=== PATIENT | female | born 2000 | race Two or more races ===

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

== ENCOUNTER 2024-08-24 02:28 | Inpatient (IN) | payer MEDICAID ==
[~2024-08-24] VITALS: Ht 154.9 cm; Wt 87.5 kg
[2024-08-24 03:43] LABS: Fern Testing Positive
[2024-08-24] MEDS ORDERED: LIDOCAINE 2%HCL (LOCAL ANESTH.) INJ 20ML MDV IJ PRN (04:00)
[2024-08-24] MEDS ORDERED: BUTORPHANOL TARTRATE 2 MG/1 ML VIAL IV PRN ×2 (04:00)
[2024-08-24] MEDS ORDERED: TERBUTALINE SULFATE 1 MG/ML 1ML VIAL SC PRN (04:00)
[2024-08-24 04:25] LABS: Urine Bacteria None Seen /hpf (None Seen)
[2024-08-24 04:35] LABS: Basophils # (auto) 0 10 ^3/uL (0-0.2); Basophils % (auto) 0.2 % (0.0-2.0); Eosinophils # (auto) 0 10 ^3/uL (0-0.8); Eosinophils % (auto) 0.3 % (0.0-7.0); Hematocrit 39.2 % (36.0-46.0); Hemoglobin 12.8 g/dL (12.2-16.2); Lymphocytes # (auto) 1.9 10 ^3/uL (0.4-5.4); Lymphocytes % (auto) 24.5 % (10.0-50.0); Mean Corpuscular Hemoglobin 29.2 pg (28.0-32.0); Mean Corpuscular Hgb Conc. 32.6 g/dL (32.0-36.0); Mean Corpuscular Volume 89.5 fL (80.0-100.0); Monocytes # (auto) 0.4 10 ^3/uL (0-1.3); Monocytes % (auto) 5.6 % (0.0-12.0); Neutrophils # (auto) 5.5 10 ^3/uL (1.6-8.6); Neutrophils % (auto) 69.4 % (37.0-80.0); Platelet Count (auto) 163 10^3/uL (140-450); Red Blood Cells 4.38 10^6/uL (4.0-5.20); Red Cell Distribution Width 15.1 % (11.8-14.3); Urine Blood 2+ /uL (Negative); Urine Clarity Clear (Clear); Urine Color Light-Yellow (Yellow); Urine Protein, UAD TRACE (Negative); Urine Specific Gravity 1.014 (1.001-1.035); Urine Urobilinogen Normal (Negative); Urine WBC 3 /hpf (0 - 5); Urine pH 6.5 (5.0-9.0); White Blood Cell 7.9 10^3/uL (4.4-10.8)
[2024-08-24] MEDS: LACTATED RINGER'S 1,000 ML IV SCH (04:50)
[2024-08-24 04:52] LABS: Alanine Aminotransferase 17 U/L (7-40); Albumin 4.1 g/dL (3.2-4.8); Alkaline Phosphatase 145 U/L (46-116); Amphetamine Screen, Urine Neg (NEGATIVE); Anion Gap 8 (5-15); Aspartate Aminotransferase 20 U/L (13-40); BUN/Creatinine Ratio 10.8 (10.0-20.0); Barbiturate Scree,Urine Neg (NEGATIVE); Benzodiazephine Screen, Urine Neg (NEGATIVE); Blood Urea Nitrogen 7 mg/dL (9-23); Cannabinoid Screen, Urine Neg (NEGATIVE); Carbon Dioxide 24 mmol/L (20-31); Chloride 105 mmol/L (98-107); Cocaine Screen, Urine Neg (NEGATIVE); Glucose 87 mg/dL (74-106); Opiate Scree,Urine Neg (NEGATIVE); Phencyclidine Screen, Urine Neg (NEGATIVE); Potassium 3.7 mmol/L (3.5-5.1); Sodium 137 mmol/L (136-145)
[2024-08-24 04:53] LABS: Total Protein 7.2 g/dL (5.7-8.2)
[2024-08-24 04:58] LABS: INR 0.91 (0.9-1.15); Partial Thromboplastin Time 27.7 SEC (24.5-34.5); Prothrombin Time 9.7 sec (9.3-11.8)
[2024-08-24 05:06] LABS: Bilirubin, Total 0.3 mg/dL (0.2-1.0)
[2024-08-24] MEDS: ROPIVACAINE HCL 200 ML ONE (05:27)
[2024-08-24] MEDS: LACTATED RINGER'S 1,000 ML IV ONE (05:30)
[2024-08-24] MEDS: ePHEDrine SULFATE 50 MG/ML AMP IV ONE (05:30)
--- NOTE | 2024-08-24 05:47 | DVHHP2 ---
OB CC & HPI Date Date of Admission: Aug 24, 2024 Patient Identification: : 2 Para: 0 EDC: Aug 28, 2024 EGA: 39.3 Chief Complaints: Reason for admission: rupture of membranes History of Present Complaints 24y G2Po IUP 39+ wk. Presented w/ PROM, grossly ruptured membranes, clear fluid. GBS+. Mild to moderate contractions. 2cm dilated on admission. Good PNL care w/ Dr. Baltazar, uncomplicated other than maternal obesity BMI 36. Past Medical History Cardiac: No pertinent Hx Pulmonary: No pertinent Hx Central Nervous System: No pertinent Hx GI: No pertinent Hx Hemotology/Oncology: No pertinent Hx Hepatobiliary: No pertinent Hx Psychiatric: No pertinent Hx Musculoskeletal: No pertinent Hx Rheumotologic: No pertinent Hx Infectious Disease: No peritnent Hx ENT: No pertinent Hx Renal/: No pertinent Hx Endocrine: No pertinent Hx Dermatology: No pertinent Hx Past Surgical History: No pertinent Hx OB History OB History Care: Good Care Ultrasounds: Normal mid trimester US Obstetrical Complications: None Medical Complications: None Allergies: Coded Allergies: NO KNOWN ALLERGIES (Unverified , 11/27/15) Current Medications Current Medications Medications (Trade) Dose Ordered Sig/Becki Route PRN Reason Start Time Stop Time Status Last Admin Lactated Ringer's 1,000 ml @ 125 mls/hr Q8H IV 08/24/24 04:00 08/24/24 04:50 Penicillin G Potassium [id number] units/Dextrose 50 ml @ 100 mls/hr Q4H IV 08/24/24 08:00 Dom Pandya (Tucks) 1 pad PRN PRN TOP PERINEAL AREA DISCOMFORT 08/24/24 04:00 Sodium Lauryl Sulfate (Phisoderm) 240 ml PRN PRN TOP PERINEAL AREA DISCOMFORT 08/24/24 04:00 Benzocaine (Dermoplast) 1 applic PRN PRN TOP PERINEAL AREA DISCOMFORT 08/24/24 04:00 Butorphanol Tartrate (Stadol Injection) 1 mg Q4HPRN PRN IV MODERATE PAIN (4-6 PAIN SCALE) 08/24/24 04:00 Butorphanol Tartrate (Stadol Injection) 2 mg Q4HPRN PRN IV SEVERE PAIN (7-10 PAIN SCALE) 08/24/24 04:00 Lidocaine HCl (Xylocaine) 20 ml ONCE PRN IJ PERINEAL AREA DISCOMFORT 08/24/24 04:00 Oxytocin 1,000 ml @ 6 ml/hr Q24H IV 08/24/24 04:00 Terbutaline Sulfate (Brethine Inj) 0.25 mg ONCE PRN SC Uterine tachysystole 08/24/24 04:00 Family & Social History Family/Social History Rubella: immune RPR/VDRL: Negative GBS Status: Positive HBsAG: Negative Review of Systems Constitutional: No symptom reported Ears, Nose, & Throat: No symptom reported Eyes: No symptom reported Pulmonary/Respiratory: No symptom reported Cardiovascular: No symptom reported Gastrointestinal: No symptom reported Genitourinary: No symptom reported Musculoskeletal: No symptom reported Skin: No symptom reported Psychiatric: No symptom reported Endocrine: No symptom reported Hemotologic/Lymphatic: No symptom reported OB Admission Exam Physical Exam HEENT: TMs Normal, Fontanelles Normal, Nasal Mucosa Normal, Eyes non-injected, Oropharynx Normal, PERRLA, Moist Membranes, EOMI Heart: Rhythm Normal Lungs: Clear Abdomen: Non tender Extremities: Normal Reflexes: Normal Pelvic Exam: RN Exam 2/ 60%/ -2 VTX Cervical Dilatation: 2cm Effacement: Other (60) Station: -2 Membranes: Intact Amniotic Fluid: Clear Heart Rate: 120's Accelerations: Accelerations Present Decelerations: No Decelerations Short Term Variability: Present Crap Game Box Person Variability: Average (6-25) Contractions on Admission: 6-10 Minutes Apart Intensity: Mild OB Plan Plan Admitting Diagnosis: Term IUP SROM, Early Labor GBS+ Maternal Obesity BMI 36 Induction Methd: Pitocin protocol Other Plan: Admit for labor and delivery Pen G for GBS+ Rx Pitocin augmentation of labor Epidural discussed w/ patient informed consent obtained Care endorsed to oncoming OB team, Dr. Baltazar contact lens blocker and cutter today. CHERIE HUBBARD DO Aug 24, 2024 05:47
[2024-08-24] MEDS: PENICILLIN G POT 5MIL/D5 50ML 50 ML IV ONE (05:50)
[2024-08-24] MEDS: ROPIVACAINE HCL 200 ML EPI ONE (05:51)
[2024-08-24] MEDS: LACT. RINGERS/OXYTOCIN 20UNITS 1,000 ML IV SCH (06:52)
--- NOTE | 2024-08-24 07:30 | DVHPN2 ---
Chief Complaints Patient reports: No new complaints Nursing reports: No new complaints Objective Medications Current Medications Medications (Trade) Dose Ordered Sig/Becki Route PRN Reason Start Time Stop Time Status Last Admin Benzocaine (Dermoplast) 1 applic PRN PRN TOP PERINEAL AREA DISCOMFORT 08/24/24 04:00 Butorphanol Tartrate (Stadol Injection) 1 mg Q4HPRN PRN IV MODERATE PAIN (4-6 PAIN SCALE) 08/24/24 04:00 Butorphanol Tartrate (Stadol Injection) 2 mg Q4HPRN PRN IV SEVERE PAIN (7-10 PAIN SCALE) 08/24/24 04:00 Lactated Ringer's 1,000 ml @ 125 mls/hr Q8H IV 08/24/24 04:00 08/24/24 04:50 Lidocaine HCl (Xylocaine) 20 ml ONCE PRN IJ PERINEAL AREA DISCOMFORT 08/24/24 04:00 Oxytocin 1,000 ml @ 6 ml/hr Q24H IV 08/24/24 04:00 08/24/24 06:52 Penicillin G Potassium [id number] units/Dextrose 50 ml @ 100 mls/hr Q4H IV 08/24/24 08:00 Sodium Lauryl Sulfate (Phisoderm) 240 ml PRN PRN TOP PERINEAL AREA DISCOMFORT 08/24/24 04:00 Terbutaline Sulfate (Brethine Inj) 0.25 mg ONCE PRN SC Uterine tachysystole 08/24/24 04:00 Dom Pandya (Tucks) 1 pad PRN PRN TOP PERINEAL AREA DISCOMFORT 08/24/24 04:00 Others ve -3cm/80/-2 Studies Laboratory Tests 08/24/24 04:09 Test 08/24/24 04:09 Range/Units Serum Glucose 87 74-106 mg/dL Ass/Plan Assessment srom Plan cont with CLEO Pina DO Aug 24, 2024 07:30
[2024-08-24] MEDS: PENICILLIN G POTASSIUM 2,500,000 UNITS in D5W 5% 50 ML IV SCH (09:56)
--- NOTE | 2024-08-24 10:46 | DVHPN2 ---
Chief Complaints Patient reports: No new complaints Nursing reports: No new complaints Objective Medications Current Medications Medications (Trade) Dose Ordered Sig/Becki Route PRN Reason Start Time Stop Time Status Last Admin Benzocaine (Dermoplast) 1 applic PRN PRN TOP PERINEAL AREA DISCOMFORT 08/24/24 04:00 Butorphanol Tartrate (Stadol Injection) 1 mg Q4HPRN PRN IV MODERATE PAIN (4-6 PAIN SCALE) 08/24/24 04:00 Butorphanol Tartrate (Stadol Injection) 2 mg Q4HPRN PRN IV SEVERE PAIN (7-10 PAIN SCALE) 08/24/24 04:00 Lactated Ringer's 1,000 ml @ 125 mls/hr Q8H IV 08/24/24 04:00 08/24/24 04:50 Lidocaine HCl (Xylocaine) 20 ml ONCE PRN IJ PERINEAL AREA DISCOMFORT 08/24/24 04:00 Oxytocin 1,000 ml @ 6 ml/hr Q24H IV 08/24/24 04:00 08/24/24 06:52 Penicillin G Potassium [id number] units/Dextrose 50 ml @ 100 mls/hr Q4H IV 08/24/24 08:00 08/24/24 09:56 Sodium Lauryl Sulfate (Phisoderm) 240 ml PRN PRN TOP PERINEAL AREA DISCOMFORT 08/24/24 04:00 Terbutaline Sulfate (Brethine Inj) 0.25 mg ONCE PRN SC Uterine tachysystole 08/24/24 04:00 Dom Pandya (Tucks) 1 pad PRN PRN TOP PERINEAL AREA DISCOMFORT 08/24/24 04:00 Others ve-10cm Studies Laboratory Tests 08/24/24 04:09 Test 08/24/24 04:09 Range/Units Serum Glucose 87 74-106 mg/dL Ass/Plan Assessment active labor Plan laboring down CLEO BUSTILLO DO Aug 24, 2024 10:46
[2024-08-24] MEDS: METHYLERGONOVINE MALEATE 0.2 MG/ML AMP IM ONE ×2 (15:18→16:45)
[2024-08-24] MEDS: CARBOPROST TROMETHAMINE 250 MCG/1ML VIAL IM ONE ×3 (15:19→16:49)
[2024-08-24] MEDS: DIPHENOXYLATE W/ATROPINE 2.5 MG TAB ONE (15:21)
[2024-08-24] MEDS: ONDANSETRON HCL 4 MG/2 ML VIAL ONE (15:28)
--- NOTE | 2024-08-24 15:51 | LDN2 ---
Labor and Delivery Note Date 08/24/24 Age 24 2 Para 1 AB 1 EDC 12- EGA 39wks Diagnosis rom Vaginal Delivery: VTX Vacuum Assisted: Yes Placenta: Spontaneous Sex: Female Apgars 8-9 Nuchal Cord Transected: No Amniotic Fluid: Clear Anesthesia epidural Episiotomy: Yes Extension: Yes (midline epis with 2nd deg perineal lac) Repaired with 2-0 chromic EBL 1000ml Labs Blood Bank 08/24/24 04:09: Blood Type O POSITIVE Complications uterine atony Conditions stable Comments/Significant Med Genia spec exam no cxal lac,uterine atony noted which responded to medical tx vaccum applied due to poor pushing effort and decl along with midline epis to which pt agreed CLEO BUSTILLO DO Aug 24, 2024 15:51
[2024-08-24] MEDS ORDERED: miSOPROStol 100 mcg TAB SL PRN (16:15)
[2024-08-24] MEDS ORDERED: miSOPROStol 100 mcg TAB PR PRN (16:15)
[2024-08-24] MEDS ORDERED: DIPHENOXYLATE W/ATROPINE 2.5 MG TAB PO PRN (16:30)
[2024-08-24] MEDS: LACT. RINGERS/OXYTOCIN 20UNITS 500 ML IV ONE ×2 (16:43→16:44)
[2024-08-24] MEDS: ONDANSETRON HCL 4 MG/2 ML VIAL IM ONE (16:46)
[2024-08-24 17:02] LABS: Basophils # (auto) 0 10 ^3/uL (0-0.2); Basophils % (auto) 0.2 % (0.0-2.0); Eosinophils # (auto) 0 10 ^3/uL (0-0.8); Eosinophils % (auto) 0.1 % (0.0-7.0); Hematocrit 37.3 % (36.0-46.0); Hemoglobin 12.3 g/dL (12.2-16.2); Lymphocytes # (auto) 1.1 10 ^3/uL (0.4-5.4); Mean Corpuscular Hemoglobin 29.4 pg (28.0-32.0); Mean Corpuscular Hgb Conc. 32.8 g/dL (32.0-36.0); Mean Corpuscular Volume 89.4 fL (80.0-100.0); Monocytes # (auto) 0.8 10 ^3/uL (0-1.3); Monocytes % (auto) 4.5 % (0.0-12.0); Neutrophils # (auto) 16.8 10 ^3/uL (1.6-8.6); Neutrophils % (auto) 89.2 % (37.0-80.0); Nucleated Red Blood Cells % 0.1 %; Red Blood Cells 4.18 10^6/uL (4.0-5.20); Red Cell Distribution Width 14.9 % (11.8-14.3); White Blood Cell 18.8 10^3/uL (4.4-10.8)
[2024-08-24 17:17] LABS: Platelet Count (auto) 158 10^3/uL (140-450)
[2024-08-24] MEDS: ACETAMINOPHEN 325 MG TAB PO PRN (18:22)
[2024-08-24] MEDS: ceFAZolin 1GM/50ML 50 ML IV ONE (18:22)
[2024-08-24 19:00] VITALS: BP 109/56; PULSE 89; RESP 16; TEMP 98.7; O2SAT 97
[2024-08-24] MEDS: IBUPROFEN 600 MG TAB PO PRN (21:15)
[2024-08-24] MEDS: DOCUSATE SOD 100 MG CAP PO SCH (22:00)
[2024-08-24 23:00] VITALS: BP 104/60; PULSE 88; RESP 16; TEMP 98.2; O2SAT 97
[2024-08-25] MEDS: ceFAZolin 1GM/50ML 50 ML IV SCH (02:23)
[2024-08-25 03:05] VITALS: BP 102/54; PULSE 83; RESP 16; TEMP 98.3; O2SAT 97
[2024-08-25] MEDS: DERMOPLAST 60ML BOTTLE TOP PRN (04:56)
[2024-08-25] MEDS: PHISODERM TOP SOLN 240ML BTL TOP PRN (04:56)
[2024-08-25] MEDS: WITCH HAZEL-GLYCERIN PAD TOP PRN (04:57)
[2024-08-25 07:30] VITALS: BP 125/59; PULSE 94; RESP 16; TEMP 98; O2SAT 97
--- NOTE | 2024-08-25 07:36 | DVHPN2 ---
Chief Complaints Patient reports: No new complaints Nursing reports: No new complaints Objective Vitals Vital Signs Date Time Temp Pulse Resp B/P (MAP) Pulse Ox O2 Delivery O2 Flow Rate FiO2 08/25/24 07:30 98.0 94 16 125/59 (81) 97 98.0 08/25/24 07:22 Room Air Medications Current Medications Medications (Trade) Dose Ordered Sig/Becki Route PRN Reason Start Time Stop Time Status Last Admin Acetaminophen (Tylenol Tablet) 650 mg Q4HP PRN PO MILD PAIN (1-3 PAIN SCALE) 08/24/24 16:30 08/25/24 01:04 Acetaminophen (Tylenol Tablet) 1,000 mg Q6HP PRN PO MILD PAIN (1-3 PAIN SCALE) 08/24/24 14:30 Cefazolin Sodium 50 ml @ 100 mls/hr Q8HR IV 08/25/24 02:00 08/25/24 02:23 Diphenoxylate HCl/ Atropine (Lomotil Tablet) 5 mg Q6HP PRN PO FOR DIARRHEA 08/24/24 16:30 Docusate Sodium (Colace Capsule) 200 mg HS PO 08/24/24 22:00 08/24/24 22:00 Ibuprofen (Motrin Tablet) 600 mg Q6HP PRN PO MODERATE PAIN (4-6 PAIN SCALE) 08/24/24 16:30 08/25/24 05:23 Misoprostol (Cytotec) 200 mcg ONCE PRN SL BLEED/HEMORRHAGE 08/24/24 16:15 Misoprostol (Cytotec) 600 mcg ONCE PRN [place] BLEED/HEMORRHAGE 08/24/24 16:15 Penicillin G Potassium [id number] units/Dextrose 50 ml @ 100 mls/hr Q4H IV 08/24/24 08:00 08/24/24 09:56 General: Normal Lungs: Normal, Accessory muscle use Cardiovascular: Normal Abdominal: Normal Extremities: Normal Studies Laboratory Tests 08/24/24 16:55 08/24/24 04:09 Test 08/24/24 04:09 Range/Units Serum Glucose 87 74-106 mg/dL Ass/Plan Assessment s/p Plan dc home fu in 2wks CLEO BUSTILLO Aug 25, 2024 07:36
--- NOTE | 2024-08-25 07:38 | DVHDS2 ---
Obstetrics Discharge Summary Obstetrics Discharge Summary Date of Admission: Aug 24, 2024 Date of Discharge: Aug 25, 2024 Reason For Admission: Onset of Labor Procedures: NST Intrapartum Procedures: Spontaneous vaginal deliv, Vacuum Extraction, Episiotomy Procedures: None Operative Complicat: Laceration (Perineal) Discharge Diagnosis: Term -Delivered Discharge Information: Activity (Other), Diet (Routine), Medications (None), Instructions (Routine), Discharge to (Home), Discarge date (08-25) CLEO BUSTILLO DO Aug 25, 2024 07:38
[2024-08-25 08:07] LABS: RPR Non Reactive (Non Reactive)
[2024-08-25] MEDS ORDERED: miSOPROStol 100 mcg TAB PO ONE (08:48)
[2024-08-25 10:55] VITALS: BP 130/78; PULSE 93; RESP 15; TEMP 98.6; O2SAT 97
[2024-08-25] MEDS: ACETAMINOPHEN 325 MG TAB PO PRN (10:57)
[2024-08-25] MEDS ORDERED: PREN-96 PO (14:22)
[2024-08-25 15:07] VITALS: BP 127/72; PULSE 93; RESP 17; TEMP 98; O2SAT 97
[2024-08-25] MEDS ORDERED: ceFAZolin 1GM/50ML 50 ML IV SCH (18:00)
== END 2024-08-25 15:38 | disposition home or self-care (01) | DRG 560 ==
LOC: LDRP 02:28 → OBSVTOIN 03:47 → LDRP 04:18
PROVIDERS: ADMIT Obstetrics & Gynecology; ATTEND Obstetrics & Gynecology
PROC: 10D07Z6 Extraction of Products of Conception, Vacuum, Via Natural or Artificial Opening (ICD-10-PCS; principal; 2024-08-24)
PROC: 0KQM0ZZ Repair Perineum Muscle, Open Approach (ICD-10-PCS; 2024-08-24)
PROC: 0W8NXZZ Division of Female Perineum, External Approach (ICD-10-PCS; 2024-08-24)
PROC: 3E0R3BZ Introduction of Anesthetic Agent into Spinal Canal, Percutaneous Approach (ICD-10-PCS; 2024-08-24)
PROC: 00HU33Z Insertion of Infusion Device into Spinal Canal, Percutaneous Approach (ICD-10-PCS; 2024-08-24)
DX: O99.824 Streptococcus B carrier state complicating childbirth (principal); Z37.0 Single live birth; O70.1 Second degree perineal laceration during delivery; O99.214 Obesity complicating childbirth; Z3A.39 39 weeks gestation of pregnancy; O62.2 Other uterine inertia
CPT/HCPCS: 36415; 59025; 59409; 62282; 80053; 80307; 81001; 81002; 82948; 84112; 85025; 85610; 85730; 86592; 86780; 86803; 86850; 86900; 86901; 94760; 96360; 96361; 96365; 96366; 96372; 96374; G0378; J2405; J2540; J2590; J7060